=== PATIENT | male | born 1940 | race Caucasian/White ===

== ENCOUNTER 2017-01-10 11:20 | Emergency (ER) | payer OTHER ==
[2017-01-10 11:30] VITALS: BP 134/85; PULSE 55; TEMP 98.5; BMI 26.4
[2017-01-10] MEDS ORDERED: DOXYCYCLINE HYCLATE 100 MG CAPSULE PO ONE ×2 (12:11→12:24)
[2017-01-10] MEDS ORDERED: MUPIROCIN 2% TOPICAL OINTMENT 22 GM TUBE TP ONE (12:12)
--- NOTE | 2017-01-10 12:18 | PDOC ---
History of Present Illness - General Chief Complaint: Bite Stated Complaint: TICK BITE Time Seen by Provider: 01/10/17 11:59 - History of Present Illness Initial Comments: 01/10/17 12:12 76-year-old male with a past medical history of glaucoma, left hip replacement, and BPH Patient states that some kind of insect bit him in his left groin yesterday while he was out walking He did not see the insect, and does not know if it was a tick or some other insect Since that time and the areas become red and inflamed He denies any fevers or chills He denies any lymphangitic streaking He did not see the insect that bit him He denies any other complaints at this time Past History - Past Medical History Allergies/Adverse Reactions: Allergies Allergy/AdvReac Type Severity Reaction Status Date / Time shellfish derived Allergy Verified 01/10/17 11:25 Home Medications: Ambulatory Orders Brimonidine Tartrate [Alphagan 0.15% -] 1 drop OU BID 12/27/15 Latanoprost 0.005% Eye Drops [Xalatan 0.005% Eye Drops -] 1 drop OU HS 12/27/15 Tamsulosin HCl [Flomax -] 0.4 mg PO DAILY@0830 #30 cap.er.24h 01/02/16 Cephalexin Monohydrate [Keflex -] 500 mg PO Q8H #30 capsule 01/10/17 Doxycycline Hyclate [Vibramycin -] 100 mg PO BID #20 cap 01/10/17 Mupirocin Ointment [Bactroban] 1 applic TP BID #1 tube 01/10/17 Disorders: Yes (BPH) Other medical history: GLAUCOMA - Surgical History Orthopedic Surgery: Yes (left hip replacement) - Psycho/Social/Smoking Cessation Hx Suicidal Ideation: No Smoking History: Unknown if ever smoked Have you smoked in the past 12 months: No Information on smoking cessation initiated: No Hx Alcohol Use: Yes (occasional) *Physical Exam - Vital Signs Last Vital Signs Temp Pulse Resp BP Pulse Ox 98.5 F 55 L 18 134/85 97 01/10/17 11:20 01/10/17 11:20 01/10/17 11:20 01/10/17 11:20 01/10/17 11:20 - Physical Exam Comments: 01/10/17 12:13 Physical exam Last Vital Signs Temp Pulse Resp BP Pulse Ox 98.5 F 55 L 18 134/85 97 01/10/17 11:20 01/10/17 11:20 01/10/17 11:20 01/10/17 11:20 01/10/17 11:20 Patient is alert and ambulatory and answering questions Head is normocephalic and atraumatic Left groin- Just below the inguinal crease, there is an insect bite, with a small amount of surrounding erythema, and early infection There is no drainage There is no cellulitis or lymphangitic streaking No other skin lesions are seen The area was examined under a magnifying light, and it does not appear to have any insect or insect mouthparts at the bite site Medical Decision Making - Medical Decision Making 01/10/17 12:14 Insect bite with secondary infection Will treat with doxycycline, to cover MRSA, as well as potential Lyme disease if this was a tick bite Will also use Bactroban, and Keflex Impression-infected insect bite *DC/Admit/Observation/Transfer Diagnosis at time of Disposition: Infected insect bite - Discharge Dispostion Disposition: HOME Condition at time of disposition: Stable - Patient Instructions Additional Instructions: Doxycycline-one pill twice a day until finished Keflex-one pill 3 times a day until finished Warm compresses to the area 2 or 3 times a day Bactroban and a bandage to the area 2 or 3 times a day Return immediately if the redness increases, you start developing any red streaks senior skin, or if you develop any fevers or chills Return immediately if you worsen in any way or have any other concerns Followup with your primary care physician in 24-48 hours Return immediately if you worsen in any way Take your medications as directed
[2017-01-10] MEDS ORDERED: MUPIROCIN 2% TOPICAL OINTMENT 22 GM TUBE ONE (12:23)
== END 2017-01-10 12:35 | disposition home or self-care (01) ==
LOC: FER 11:20
DX: S30.861A Insect bite (nonvenomous) of abdominal wall, initial encounter (principal); B96.89 Other specified bacterial agents as the cause of diseases classified elsewhere; W57.XXXA Bitten or stung by nonvenomous insect and other nonvenomous arthropods, initial encounter; Y93.89 Activity, other specified; Y92.9 Unspecified place or not applicable; N40.0 Benign prostatic hyperplasia without lower urinary tract symptoms; Z96.642 Presence of left artificial hip joint; H40.9 Unspecified glaucoma
CPT/HCPCS: 99283-25

== ENCOUNTER 2021-03-24 14:30 | Emergency (ER) | payer OTHER ==
[2021-03-24 14:54] VITALS: BP 156/84; PULSE 57; TEMP 98.9; BMI 28.5
[2021-03-24 15:36] LABS: BASO % 0.6 % (0-2.0); EOS % 3.8 % (0-4.5); HEMATOCRIT 39.4 % (35.4-49); HEMOGLOBIN 13.5 GM/dl (11.7-16.9); LYMPH % 17.1 % (8-40); MCH 31.1 pg (25.7-33.7); MCHC 34.2 g/dl (32.0-35.9); MEAN CELL VOLUME 91.2 fl (80-96); MEAN PLT VOLUME 9.4 fl (7.5-11.1); MONO % 8.2 % (3.8-10.2); NEUT % 70.3 % (42.8-82.8); PLATELET COUNT 200 10^3/uL (134-434); RBC 4.33 M/mm3 (4.00-5.60); RDW 13.5 % (11.9-15.9); WHITE BLOOD COUNT 8.7 K/mm3 (4.0-10.8)
[2021-03-24 15:40] LABS: ALBUMIN 3.9 g/dl (3.4-5.0); BILIRUBIN,TOTAL 0.9 mg/dl (0.2-1); CALCIUM 8.8 mg/dl (8.5-10); CREATININE 0.7 mg/dl (0.55-1.3); TOT PROT 6.8 g/dl (6.4-8.2)
[2021-03-24] MEDS ORDERED: DIPHTH,PERTUSS(ACELL),TET 0.5 ML DISP.SYRIN IM ONE ×2 (18:00→18:05)
== END 2021-03-24 18:40 | disposition home or self-care (01) ==
LOC: FER 14:30
PROC: 3E0234Z Introduction of Serum, Toxoid and Vaccine into Muscle, Percutaneous Approach (ICD-10-PCS; principal; 2021-03-24)
DX: S22.41XA Multiple fractures of ribs, right side, initial encounter for closed fracture (principal); W10.8XXA Fall (on) (from) other stairs and steps, initial encounter; W22.8XXA Striking against or struck by other objects, initial encounter; Y93.01 Activity, walking, marching and hiking
CPT/HCPCS: 36415; 71260-TC; 74177-TC; 80053; 81003; 85025; 90471; 90715; 99285-25; Q9967